=== PATIENT | female | born 1970 ===

== ENCOUNTER 2023-12-23 01:50 | Day surgery (SDC) | payer OTHER, SELFPAY ==
[2023-12-21 12:59] VITALS: BMI 38.5
[2023-12-23 07:40] VITALS: BP 138/85; PULSE 71; RESP 18; TEMP 36.3; O2SAT 100; BMI 38.0
[2023-12-23] MEDS: LACTATED RINGERS 1,000 ML 150 ML IV CONT (08:15)
--- NOTE | 2023-12-23 08:38 | WPDANESEPPF ---
Anes - Initial Pre Proc Eval Procedure: Operation Date: 12/23/23 09:00 Proposed Procedures p Colonoscopy - Sai Alfonso MD Date/Time: 12/23/23 08:38 Surgeon: Sai Alfonso MD Pre Op Diagnosis: Hemorrhoids Patient Data Age: 53 Gender: F Height: 1.57 m Weight: 94.5 kg Last Vital Signs Temp 97.3 F L 12/23/23 07:40 Pulse 71 12/23/23 07:40 Resp 18 12/23/23 07:40 BP 138/85 12/23/23 07:40 Pulse Ox 100 12/23/23 07:40 O2 Del Method Room Air 12/23/23 07:40 Allergies Allergy/AdvReac Type Severity Reaction Status Date / Time azithromycin Allergy Severe vomited Verified 12/23/23 08:02 blood Penicillins Allergy Severe Anaphylaxis Verified 12/23/23 08:02 Home Medications Medication Instructions Recorded Confirmed Type ferrous gluconate 325 mg (37.5 mg 324 mg PO DAILY 12/21/23 12/23/23 History iron) tablet furosemide 20 mg tablet 20 mg PO DAILY 12/21/23 12/23/23 History lisinopril 20 mg tablet 20 mg PO DAILY 12/21/23 12/23/23 History naproxen 250 mg tablet 250 mg PO BID PRN Pain 12/21/23 12/23/23 History ropinirole 0.5 mg tablet 0.5 mg PO HS 12/21/23 12/23/23 History Patient hx anesthesia problems: none Family hx anesthesia problems: none Results Review: All pre-operative results and documents have been reviewed as part of the pre-operative evaluation. [facility] Social History Social History Substance use: former Substance use type: amphetamines Living arrangements: incarcerated Anes - Eval Final PreProcedure Day of Procedure 12/23/23 08:38 Patient weight: obese Heart: regular rate and rhythm Lungs: clear to auscultation Airway: Mallampati scale class III Neurological: alert and oriented Last oral intake: >/= 8 hours ASA classification: III Emergent: no Anesthetic plan: proceed Anesthesia type and monitoring: general GIVS and standard monitoring Results Review: All pre-operative results and documents have been reviewed as part of the pre-operative evaluation. Informed Consent: The patient's anesthetic plan and its attendant risks and benefits were discussed with the patient/family/POA. Questions were solicited and answers provided to the satisfaction of the patient/family/POA.
--- NOTE | 2023-12-23 08:39 | PM.HPGS ---
History of Present Illness History of Present Illness Consent: Risks, benefits, and alternatives have been discussed and questions answered. Patient agrees to proceed with procedure. Chief complaint: Hemorrhoids Narrative: Bina Bonds is a 53 year old female here for first screening colonoscopy Review of Systems Review of Systems: All systems reviewed & are unremarkable except as noted in HPI and below PMFSH Past Medical History Medical History (Updated 12/23/23 @ 08:39 by Sai Alfonso MD) Colon cancer screening Social History Social History Substance use: former Substance use type: amphetamines Living arrangements: incarcerated Meds Home Medications and Allergies Home Medications Medication Instructions Recorded Confirmed Type ferrous gluconate 325 mg (37.5 mg 324 mg PO DAILY 12/21/23 12/23/23 History iron) tablet furosemide 20 mg tablet 20 mg PO DAILY 12/21/23 12/23/23 History lisinopril 20 mg tablet 20 mg PO DAILY 12/21/23 12/23/23 History naproxen 250 mg tablet 250 mg PO BID PRN Pain 12/21/23 12/23/23 History ropinirole 0.5 mg tablet 0.5 mg PO HS 12/21/23 12/23/23 History Allergies Allergy/AdvReac Type Severity Reaction Status Date / Time azithromycin Allergy Severe vomited Verified 12/23/23 08:02 blood Penicillins Allergy Severe Anaphylaxis Verified 12/23/23 08:02 Vital Signs Vital Signs - 24 hr 12/23/23 07:40 Temperature 97.3 F L Pulse Rate 71 Respiratory Rate 18 Blood Pressure 138/85 Pulse Oximetry 100 Oxygen Delivery Room Air Exam Const: General: comfortable and no acute distress HENMT: Face/Nose/Sinus: Normal nares present Eyes: General: appearance normal, both eyes and all related structures Neck: Neck: no JVD Resp: Auscultation: clear to auscultation bilaterally Cardio: Rate: regular rate Rhythm: regular rhythm GI: Inspection: non-distended GI Palp: Yes Soft to palpation Skin: General skin exam: normal color Neuro: General: gait normal Speech: normal speech Extrem: General: normal to inspection Psych: Mental Status: mental status grossly normal Assessment and Plan Assessment and plan (1) Colon cancer screening: Code(s): Z12.11 - Encounter for screening for malignant neoplasm of colon Status: Acute Assessment and Plan: colonoscopy
[2023-12-23 08:56] VITALS: BP 103/58; PULSE 65; RESP 14; O2SAT 99
[2023-12-23 09:06] VITALS: BP 106/69; PULSE 71; RESP 18; O2SAT 99
[2023-12-23 09:16] VITALS: BP 109/67; PULSE 68; RESP 18; O2SAT 99
[2023-12-23 09:24] LABS: BEDSIDEPREGUCG Negative (Negative)
== END 2023-12-23 09:23 | disposition other institution (70) ==
PROVIDERS: Visit Provider Internal Medicine Gastroenterology
PROC: 0DJD8ZZ Inspection of Lower Intestinal Tract, Via Natural or Artificial Opening Endoscopic (ICD-10-PCS; CPT 45378; principal; 2023-12-23 09:00)
DX: Z12.11 Encounter for screening for malignant neoplasm of colon (principal); K57.30 Diverticulosis of large intestine without perforation or abscess without bleeding; E66.9 Obesity, unspecified; Z68.38 Body mass index [BMI] 38.0-38.9, adult; Z79.1 Long term (current) use of non-steroidal anti-inflammatories (NSAID)
CPT/HCPCS: 45378; J2003; J2704; J7120